=== PATIENT | female | born 1995 ===

== ENCOUNTER 2021-04-20 04:05 | Inpatient (IN) ==
[2021-04-20] MEDS ORDERED: BUTORPHANOL 2 MG/ML VIAL IV PRN (04:21)
[2021-04-20] MEDS ORDERED: ONDANSETRON 4 MG/2 ML VIAL IV PRN ×2 (04:21→05:28)
[2021-04-20] MEDS ORDERED: MEPERIDINE 50 MG/1 ML VIAL IV PRN (04:21)
[2021-04-20] MEDS ORDERED: OXYTOCIN/LR 30 UNIT/1,000 ML BAG IV ONE (04:24)
[2021-04-20] MEDS ORDERED: miSOPROStoL 200 MCG TABLET ONE (04:26)
[2021-04-20] MEDS ORDERED: TRANEXAMIC ACID 1,000 MG/10 ML VIAL ONE (04:26)
[2021-04-20] MEDS ORDERED: CARBOPROST TROMETHAMINE 250 MCG/ML AMP IM ONE (04:27)
[2021-04-20] MEDS ORDERED: METHYLERGONOVINE 0.2 MG/1 ML AMP ONE (04:27)
[2021-04-20] MEDS ORDERED: LACTATED RINGERS 1,000 ML IV SCH (04:30)
[2021-04-20 05:21] LABS: Cord Arterial Blood HCO3 20.9 MMOL/L
[2021-04-20 05:23] LABS: Cord Venous Blood HCO3 21.5 MMOL/L; Cord Venous Blood PCO2 33.9 MMHG; Cord Venous Blood PO2 31.8
[2021-04-20] MEDS ORDERED: oxyCODONE/ACETAMINOPHEN 5-325 MG TABLET PO PRN ×2 (05:28)
[2021-04-20] MEDS ORDERED: MEASLES/MUMPS/RUBELLA VACCINE 0.5 ML VIAL SUBCUT ONE (05:28)
[2021-04-20] MEDS ORDERED: RHO(D) IMMUNE GLOBULIN 300 MCG SYRINGE IM ONE (05:28)
[2021-04-20] MEDS ORDERED: LANOLIN 50% CREAM 0.3 OZ TUBE TOP PRN (05:28)
[2021-04-20] MEDS ORDERED: OXYTOCIN/LR 20 UNIT/1,000 ML BAG IV ONE (05:28)
[2021-04-20] MEDS ORDERED: BENZOCAINE 20%/MENTHOL 0.5% SPRAY 56 GM CAN TOP PRN (05:28)
[2021-04-20] MEDS ORDERED: WITCH HAZEL PADS 100/JAR TOP PRN (05:28)
[2021-04-20] MEDS ORDERED: BISACODYL 10 MG SUPP RECTAL PRN (05:28)
[2021-04-20] MEDS ORDERED: HYDROCORTISONE 2.5% RECTAL CREAM 30 GM TUBE TOP PRN (05:28)
[2021-04-20] MEDS ORDERED: ACETAMINOPHEN 325 MG TABLET PO PRN (05:28)
[2021-04-20] MEDS ORDERED: DIPH/TET/ACEL PERT BOOSTER VACCINE 0.5 ML VIAL IM ONE (05:28)
[2021-04-20] MEDS ORDERED: LIDOCAINE 1% 50 ML VIAL ONE (06:04)
[2021-04-20 08:24] LABS: Basophils % 0.2 % (0.0-0.8); Eosinophils % 0.1 % (0.00-10.9); Hematocrit 39.9 VOL% (35.7-47.0); Hemoglobin 12.8 GM/DL (12.0-16.0); Immature Granulocytes % 0.6 %; Immature Granulocytes Absolute 0.12 #; Lymphocytes # 1.3 10*3/uL (1.4-4.0); Lymphocytes % 7.1 % (21.3-54.2); Mean Corpuscular HGB Conc 32.1 GM/DL (32-36); Mean Corpuscular Volume 89.9 FL (87-102); Monocytes % 2.5 % (1.7-12.7); Neutrophils % 89.5 % (38.7-73.9); Platelet Count 230 T/CUMM (130-400); Red Blood Count 4.44 MC/CUMM (3.8-5.5); Red Cell Distribution Width 13.3 % (9.3-17.3)
[2021-04-20] MEDS: IBUPROFEN 800 MG TABLET PO PRN (21:01)
[2021-04-20] MEDS: DOCUSATE SODIUM 100 MG CAPSULE PO SCH (21:01)
[2021-04-21 06:03] LABS: Basophils % 0.2 % (0.0-0.8); Eosinophils % 0.4 % (0.00-10.9); Hematocrit 34.8 VOL% (35.7-47.0); Hemoglobin 11.2 GM/DL (12.0-16.0); Immature Granulocytes % 0.5 %; Immature Granulocytes Absolute 0.06 #; Lymphocytes % 26.6 % (21.3-54.2); Mean Corpuscular HGB Conc 32.2 GM/DL (32-36); Mean Corpuscular Volume 90.6 FL (87-102); Mean Platelet Volume 11.3 FL (9.6-12.0); Monocytes % 6.7 % (1.7-12.7); Neutrophils % 65.6 % (38.7-73.9); Platelet Count 190 T/CUMM (130-400); Red Blood Count 3.84 MC/CUMM (3.8-5.5); Red Cell Distribution Width 13.4 % (9.3-17.3); White Blood Count 11.3 T/CUMM (4-12)
[2021-04-21] MEDS: DOCUSATE SODIUM 100 MG CAPSULE PO SCH ×2 (09:15→21:14)
[2021-04-21] MEDS: IBUPROFEN 800 MG TABLET PO PRN (21:15)
[2021-04-22 07:29] VITALS: BP 117/76
[2021-04-22] MEDS: DOCUSATE SODIUM 100 MG CAPSULE PO SCH (08:09)
== END 2021-04-22 12:30 | disposition home or self-care (01) | DRG 560 ==
LOC: N.LD 04:05 → N.OB 09:20
PROVIDERS: ADMIT Obstetrics & Gynecology; ATTEND Obstetrics & Gynecology